=== PATIENT | female | born 1965 | race Caucasian/White ===

== ENCOUNTER 2021-02-06 12:25 | Emergency (ER) | payer OTHER ==
[~2021-02-06] VITALS: Ht 165.1 cm; Wt 71.7 kg
--- NOTE | 2021-02-06 12:25 | NUR ---
BIBSELF C/O ON AND OFF ABDOMINAL PAIN X2WKS, MOUTH SORES X2WKS, -NAUSEA, -VOMITING, LOOSE STOOLS ONCE A DAY. PT VITALS ARE WITHIN NORMAL LIMITS. BREATHING IS EVEN AND UNLABORED.
--- NOTE | 2021-02-06 12:39 | NUR ---
DR SPARROW AT BEDSIDE
[2021-02-06 13:07] VITALS: BP 114/71
--- NOTE | 2021-02-06 13:09 | NUR ---
DISCHARGE INSTRUCTION GIVEN , PT VERBLIZES UNDERSTANDING , PT LEFT ER AMBULATORY IN STABLE CONDITION .
== END 2021-02-06 13:12 | disposition home or self-care (01) ==
LOC: ER 12:32
DX: B08.5 Enteroviral vesicular pharyngitis (principal); G70.00 Myasthenia gravis without (acute) exacerbation